=== PATIENT | female | born 1980 | race Caucasian/White ===

== ENCOUNTER → 2018-03-04 | Outpatient (CLI) | payer MEDICARE | END | disposition home or self-care (01) | LOC: MAMMO 10:59 | DX: Z12.31 Encounter for screening mammogram for malignant neoplasm of breast (principal) | CPT/HCPCS: 77067 ==

== ENCOUNTER → 2018-03-07 | Outpatient (CLI) | payer MEDICARE | END | disposition home or self-care (01) | LOC: US 10:48 | DX: N63.20 Unspecified lump in the left breast, unspecified quadrant (principal) | CPT/HCPCS: 76641 ==

== ENCOUNTER → 2018-09-26 | Outpatient (CLI) | payer MEDICARE ==
--- NOTE | 2018-09-26 13:26 | RAD ---
DATE: 09/26/2018 EXAM: DIGITAL DIAGNOSTIC BILATERAL HISTORY: 6 month follow-up COMPARISON: 03/04/2018 This study was interpreted with the benefit of Computerized Aided Detection (CAD). Breast Density: SCATTERED The breast parenchyma shows scattered fibroglandular densities. Breast parenchyma level B. FINDINGS: A smooth 3-4 mm nodule is again noted laterally in the right breast showing no significant interval change. A previous ultrasound exam suggested a probable benign etiology. There is a cluster of 2 smooth nodules in the central aspect of the left breast which are also unchanged. The shape of these nodules suggests that this is a cluster of benign intramammary lymph nodes. An elongated nodule is now noted far posteriorly in the upper aspect of the right breast on the oblique view. This was not evident on the previous study, however, that is likely on a technical basis since more of the posterior breast is included on the current exam. This is also probably a lymph node. No spiculated mass or architectural distortion is seen. Minimal benign type calcification is present. No suspicious microcalcifications have developed. IMPRESSION: Probably benign findings as described above. Follow-up bilateral mammography in 6 months is suggested. BI-RADS CATEGORY: 3 PROBABLY BENIGN FINDING(S)-SHORT INTERVAL FOLLOW-UP SUGGESTED RECOMMENDED FOLLOW-UP: 6M 6 MONTH FOLLOW-UP PQRS compliance statement: Patient information was entered into a reminder system with a target due date for the next mammogram. Mammography is a sensitive method for finding small breast cancers, but it does not detect them all and is not a substitute for careful clinical examination. A negative mammogram does not negate a clinically suspicious finding and should not result in delay in biopsying a clinically suspicious abnormality. "Our facility is accredited by the [employer] Mammography [employer]."
== END | disposition home or self-care (01) ==
LOC: MAMMO 12:23
PROVIDERS: ATTEND Internal Medicine
DX: R92.8 Other abnormal and inconclusive findings on diagnostic imaging of breast (principal)
CPT/HCPCS: 77066

== ENCOUNTER → 2019-05-11 | Outpatient (CLI) | payer MEDICAID, OTHER ==
--- NOTE | 2019-05-11 13:08 | RAD ---
DATE: 05/11/2019. EXAM: DIGITAL DIAGNOSTIC BILATERAL HISTORY: Bilateral breast abnormality. 6 month Follow-up COMPARISON: Previous mammogram from 09/26/2018. This study was interpreted with the benefit of Computerized Aided Detection (CAD). FINDINGS: Breast Density: SCATTERED The breast parenchyma shows scattered fibroglandular densities. Breast parenchyma level B. The skin and nipples are within normal limits. Stable bilateral breast nodules. No suspicious calcifications, spiculated mass or area of architectural distortion. IMPRESSION: Bilateral breast nodules. Stable exam. BI-RADS CATEGORY: 3 PROBABLE BENIGN FINDING(S-SHORT INTERVAL FOLLOW-UP SUGGESTED RECOMMENDED FOLLOW-UP: 6M 6 MONTH FOLLOW-UP. Bilateral breast mammogram in 6 months recommended. PQRS compliance statement: Patient information was entered into a reminder system with a target due date for the next mammogram. Mammography is a sensitive method for finding small breast cancers, but it does not detect them all and is not a substitute for careful clinical examination. A negative mammogram does not negate a clinically suspicious finding and should not result in delay in biopsying a clinically suspicious abnormality. "Our facility is accredited by the [employer] Mammography [employer]."
== END | disposition home or self-care (01) ==
LOC: MAMMO 12:24
PROVIDERS: ATTEND Internal Medicine
DX: N63.20 Unspecified lump in the left breast, unspecified quadrant (principal); N63.10 Unspecified lump in the right breast, unspecified quadrant
CPT/HCPCS: 77066

== ENCOUNTER → 2020-09-27 | Outpatient (CLI) | payer OTHER, MEDICAID ==
--- NOTE | 2020-09-27 13:21 | RAD ---
DATE: 09/27/2020 12:31 PM EXAM: MAMMO VINI DIAAdalberto BILAT HISTORY: Patient is due for six-month follow-up probably benign bilateral breast nodules. She's also due for screening. COMPARISON: Bilateral mammograms of 03/04/2018, 09/26/2018 and 05/11/2019 Bilateral CC and MLO views of the breasts were performed. Bilateral breast tomosynthesis was performed in CC and MLO projections. This study was interpreted with the benefit of Computerized Aided Detection (CAD). FINDINGS: Breast Density: FATTY The Breast Parenchyma is primarily fatty replaced. Breast parenchyma level density A. The 4 mm oval mass in the upper outer right breast posteriorly has not changed in 2 years and shows central lucency consistent with a small intramammary lymph node. The lobulated mass in the inferolateral left breast measuring 8 mm in diameter in the middle third lower-outer left breast also shows no change in 2 years and is consistent with a benign intramammary lymph node. Additional imaging by ultrasound is not indicated at this visit. No suspicious masses, microcalcifications or architectural distortion is present to suggest malignancy in either breast. The visualized axillae are unremarkable. IMPRESSION: No mammographic evidence of malignancy. BI-RADS CATEGORY: 2 BENIGN FINDING(S) RECOMMENDED FOLLOW-UP: 12M 12 MONTH FOLLOW-UP Annual screening mammography is recommended, unless clinically indicated sooner based on symptoms or change in physical exam. PQRS compliance statement: Patient information was entered into a reminder system with a target due date for the next mammogram. Mammography is a sensitive method for finding small breast cancers, but it does not detect them all and is not a substitute for careful clinical examination. A negative mammogram does not negate a clinically suspicious finding and should not result in delay in biopsying a clinically suspicious abnormality. "Our facility is accredited by the [employer] Mammography [employer]."
== END ==
LOC: MAMMO 12:20
PROVIDERS: ATTEND Internal Medicine
DX: R92.2 Inconclusive mammogram (principal); N63.11 Unspecified lump in the right breast, upper outer quadrant; N63.23 Unspecified lump in the left breast, lower outer quadrant
CPT/HCPCS: 77066; G0279; 77062